=== PATIENT | female | born 1940 | race Caucasian/White ===

== ENCOUNTER → 2019-09-04 | Outpatient (REF) | payer MEDICARE ==
[2019-09-05 16:25] LABS: ANTINUCLEAR ANTIBODIES DIRECT Negative (Negative)
== END ==
LOC: M LAB REF 12:35
PROVIDERS: ATTEND Internal Medicine
DX: R51 Headache (principal)

== ENCOUNTER → 2020-02-15 | Outpatient (CLI) | payer MEDICARE | LOC: M LABSMTC 13:03 | PROVIDERS: ATTEND Family Medicine | DX: Z11.59 Encounter for screening for other viral diseases (principal); Z20.828 Contact with and (suspected) exposure to other viral communicable diseases ==

== ENCOUNTER → 2021-09-11 | Outpatient (CLI) | payer MEDICARE ==
--- NOTE | 2021-09-11 10:42 | REP ---
INDICATION: SPINAL COMPRESSION FRACTURE COMPARISON: None. TECHNIQUE: AP, lateral, bilateral oblique, and coned-down views of the lumbar spine. FINDINGS: Alignment and lordosis maintained. Age-related osteopenia noted. L5-S1 demonstrates endplate sclerosis, disc space narrowing and facet hypertrophy along with mild marginal spurring. Remainder of the visualized thoracolumbar spine appears essentially age-appropriate. No acute fracture/compression injury or subluxation. IMPRESSION: Focal degenerative spondylosis at L5-S1. <Electronically signed by Rob Pro > 09/11/21 [id number]
--- NOTE | 2021-09-11 10:54 | REP ---
INDICATION: SPINAL COMPRESSION FRACTURE COMPARISON: None. TECHNIQUE: AP, lateral, and swimmers views. FINDINGS: Alignment and kyphosis is maintained. Age-related osteopenia and generalized degenerative changes are appreciated along with mild chronic appearing compression fracture at T8. IMPRESSION: Osteopenia and generalized age-related degenerative changes. Chronic appearing compression deformity at T8. <Electronically signed by Rob Pro > 09/11/21 [id number]
== END ==
LOC: M WUC 10:02
PROVIDERS: ATTEND Internal Medicine
DX: M47.812 Spondylosis without myelopathy or radiculopathy, cervical region (principal)

== ENCOUNTER → 2021-10-30 | Outpatient (CLI) | payer MEDICARE ==
--- NOTE | 2021-10-30 10:11 | REPMRS ---
Patient History The patient states she has not had a clinical breast exam in over a year. Patient is postmenopausal. No known family history of cancer. Reductions of both breasts, 1989. Took hormonal contraceptives for 10 years. Took estrogen for 10 years. Tomosynthesis is performed. Volpara breast density is b. [facility] lifetime risk of breast cancer 1.2%. 12 lbs unintentional weight loss due to pt being sick. Moderna vaccines 12/25/20, 01/23/21, Booster 10/08/21, Unsure of which arm. Patient states no breast complaints today. Patient has signed MRS History Sheet. Digital Woman Screen Mammo: October 30, 2021 - Exam #: [id number] Bilateral CC and MLO view(s) were taken. Technologist: RT Neal Prior study comparison: September 15, 2020, bilateral digital mammo screening bilat, performed at [facility]. December 01, 2018, bilateral digital mammo screening bilat, performed at [facility]. November 09, 2017, bilateral digital mammo screening bilat, performed at [facility]. October 21, 2014, bilateral bilat screen digital mammo, performed at [facility] ([facility]). October 19, 2013, bilateral bilat screen digital mammo, performed at [facility] ([facility]). FINDINGS: There are scattered fibroglandular densities. There has been no change in the appearance of the mammogram from the prior studies. There is a mild amount of residual fibroglandular tissue which is fairly symmetric. There is no interval development of dominant mass, architectural distortion, or clustered microcalcification suggestive of malignancy. Assessment: BI-RADS/ACR category 1 mammogram. Negative Mammogram. Recommendation Routine screening mammogram in 1 year (for women over age 40). This mammogram was interpreted with the aid of an FDA-approved computer-aided dectection system. Electronically Signed By: Julien Farmer MD 10/30/21 [id number]
--- NOTE | 2021-10-30 12:20 | DEXAMM ---
INDICATION: SCREEN OSTEOPOROSIS. COMPARISON: 08/10/2019 as well as other prior exams. TECHNIQUE: Bone density was measured using dual-energy x-ray absorptiometry (DEXA). FINDINGS: AP SPINE L1-L4 BMD 0.958 g/cm2 Young Adult T-Score -1.8 Age Matched Z-Score 0.0. LT FEMUR, TOTAL BMD 0.832 g/cm2 Young Adult T-Score -1.4 Age Matched Z-Score 0.7. LT NECK BMD 0.791 g/cm2 Young Adult T-Score -1.8 Age Matched Z-Score 0.4. RT FEMUR, TOTAL BMD 0.794 g/cm2 Young Adult T-Score -1.7 Age Matched Z-Score 0.4. RT NECK BMD 0.685 g/cm2 Young Adult T-Score -2.5 Age Matched Z-Score -0.3. IMPRESSION: There is low bone density of the spine. There is low bone density of the left hip. There is low bone density of the right hip. The density of the spine has decreased 7.1% since the initial exam on 08/08/2000. The density of the spine increased 3.5% since most recent exam on 08/10/2019. The density of the left hip has decreased 14.0% since initial exam on 08/08/2000. The density of the left hip has decreased 3.0% since most recent exam on 08/10/2019. The density of the right hip has decreased 16.5% since the initial exam on 08/08/2000. The density of the right hip has decreased 3.9% since the most recent exam on 08/10/2019. FOLLOW-UP: Recommendation for the next bone density exam: 2 years. <Electronically signed by Julien Farmer > 10/30/21 [id number]
== END ==
LOC: M WHC 08:41
PROVIDERS: ATTEND Internal Medicine
DX: Z12.31 Encounter for screening mammogram for malignant neoplasm of breast (principal); Z78.0 Asymptomatic menopausal state; Z98.890 Other specified postprocedural states; Z92.0 Personal history of contraception; Z92.23 Personal history of estrogen therapy; M85.88 Other specified disorders of bone density and structure, other site

== ENCOUNTER → 2022-07-13 | Outpatient (REF) | payer MEDICARE ==
[2022-07-13 18:09] LABS: PERCENT SATURATION 27.2 % (13.2-45.0)
== END ==
LOC: M LAB REF 16:26
PROVIDERS: ATTEND Internal Medicine
DX: M85.9 Disorder of bone density and structure, unspecified (principal)

== ENCOUNTER → 2022-08-23 | Outpatient (REF) | payer MEDICARE ==
[2022-08-23 16:40] LABS: INR 0.82; PARTIAL THROMBOPLASTIN TIME 25.4 SECONDS (25.9-37.0); PROTHROMBIN TIME 11.7 SECONDS (12.7-14.5)
[2022-08-23 20:00] LABS: APPEARANCE, URINE MANUAL CLEAR (CLEAR); COLOR, URINE MANUAL YELLOW (YELLOW)
[2022-08-23 20:01] LABS: BILIRUBIN, URINE MANUAL NEGATIVE (NEGATIVE); BLOOD URINE MANUAL POSITIVE (NEGATIVE); GLUCOSE, URINE (UA) MANUAL NEGATIVE (NEGATIVE); KETONE, URINE MANUAL NEGATIVE (NEGATIVE); LEUKOCYTE ESTERASE, URINE MAN NEGATIVE (NEGATIVE); NITRITE, URINE MANUAL NEGATIVE (NEGATIVE); PROTEIN, URINE MANUAL NEGATIVE (NEGATIVE); UROBILINOGEN, URINE MANUAL NORMAL (NORMAL)
[2022-08-23 20:23] LABS: SQUAMOUS EPITHELIAL CELL URINE SMALL AMOUNT /hpf (SMALL AMT); WBC, URINE 0-1 /hpf (0-3)
[2022-08-23 20:24] LABS: BACTERIA, URINE NONE SEEN; CALCIUM OXALATE CRYSTALS,URINE SMALL AMOUNT /hpf; HYALINE CAST, URINE NONE SEEN /lpf (0-1); MUCUS, URINE SMALL AMOUNT (NEGATIVE)
== END ==
LOC: M LAB REF 16:17
PROVIDERS: ATTEND Internal Medicine
DX: Z01.818 Encounter for other preprocedural examination (principal)

== ENCOUNTER → 2022-12-29 | Outpatient (CLI) | payer MEDICARE | LOC: M WHC 13:09 | PROVIDERS: ATTEND Internal Medicine | DX: Z12.31 Encounter for screening mammogram for malignant neoplasm of breast (principal) ==

== ENCOUNTER → 2024-01-30 | Outpatient (CLI) | payer MEDICARE | LOC: M WHC 09:47 | PROVIDERS: ATTEND Internal Medicine | DX: Z12.31 Encounter for screening mammogram for malignant neoplasm of breast (principal); M81.0 Age-related osteoporosis without current pathological fracture ==

== ENCOUNTER → 2024-05-24 | Outpatient (CLI) | payer MEDICARE | LOC: M PLAIMG 09:28 | PROVIDERS: ATTEND Internal Medicine | DX: S22.060A Wedge compression fracture of T7-T8 vertebra, initial encounter for closed fracture (principal); Y93.9 Activity, unspecified; Y92.9 Unspecified place or not applicable ==

== ENCOUNTER → 2025-03-01 | Outpatient (CLI) | payer MEDICARE | LOC: M WHC 14:23 | PROVIDERS: ATTEND Internal Medicine | DX: Z12.31 Encounter for screening mammogram for malignant neoplasm of breast (principal); R92.313 Mammographic fatty tissue density, bilateral breasts ==

== ENCOUNTER → 2025-03-13 | Outpatient (CLI) | payer MEDICARE | LOC: M PLAIMG 14:54 | PROVIDERS: ATTEND Internal Medicine | DX: I72.0 Aneurysm of carotid artery (principal) ==